=== PATIENT | male | born 1960 | race Caucasian/White ===

== ENCOUNTER 2022-07-17 07:45 | Day surgery (SDC) | payer OTHER ==
[2022-07-15 12:17] VITALS: BMI 25.5
[2022-07-17 08:18] VITALS: RESP 20
[2022-07-17 11:05] VITALS: TEMP 97.8
[2022-07-17 11:08] VITALS: BP 110/65; PULSE 74
== END 2022-07-17 12:00 | disposition left against medical advice (07) ==
LOC: FASU-ENDO 07:45
PROVIDERS: ATTEND Internal Medicine Gastroenterology
PROC: 0DJD8ZZ Inspection of Lower Intestinal Tract, Via Natural or Artificial Opening Endoscopic (ICD-10-PCS; principal; 2022-07-17 10:02)
DX: Z12.11 Encounter for screening for malignant neoplasm of colon (principal); R10.9 Unspecified abdominal pain; K64.1 Second degree hemorrhoids; K57.30 Diverticulosis of large intestine without perforation or abscess without bleeding

== ENCOUNTER 2023-10-26 09:32 | Day surgery (SDC) | payer OTHER ==
[2023-10-25 14:58] VITALS: BMI 25.7
[2023-10-26 10:48] VITALS: PULSE 86; RESP 18; TEMP 97.4
[2023-10-26 10:58] VITALS: BP 121/67
== END 2023-10-26 11:15 | disposition home or self-care (01) ==
LOC: FASU-ENDO 09:32
PROVIDERS: ATTEND Internal Medicine Gastroenterology
PROC: 0DB68ZX Excision of Stomach, Via Natural or Artificial Opening Endoscopic, Diagnostic (ICD-10-PCS; 2023-10-26)
PROC: 0DB48ZX Excision of Esophagogastric Junction, Via Natural or Artificial Opening Endoscopic, Diagnostic (ICD-10-PCS; 2023-10-26)
PROC: 0DB98ZX Excision of Duodenum, Via Natural or Artificial Opening Endoscopic, Diagnostic (ICD-10-PCS; principal; 2023-10-26 10:09)
DX: K29.50 Unspecified chronic gastritis without bleeding (principal); K21.00 Gastro-esophageal reflux disease with esophagitis, without bleeding; K44.9 Diaphragmatic hernia without obstruction or gangrene; R10.13 Epigastric pain
CPT/HCPCS: 88305-TC; 88342-TC